=== PATIENT | male | born 1945 | race Caucasian/White ===

== ENCOUNTER → 2016-11-02 | Outpatient (CLI) | payer OTHER, BC ==
[~2016-11-02] VITALS: Ht 175.3 cm; Wt 86.6 kg
[~2016-11-02] MED LIST: ACIDOPHILUS1 EAC3 PO; ALBUTEROL2.5 MG/0.5 INH; AMBIEN 10 MG TA10 MG PO; AMITRIPTYLINE H25 M2 PO; APAP500 PO; ASPIRIN325 PO; ASTHALIN; AVODART0.5 MG PO; CHERATUSSIN AC118 ML PO; CHERATUSSIN DA480 ML; DITROPAN XL15 MG PO; FINASTERIDE5 MG PO; FLEXERIL PO; HYDROCODON-ACE1 EAC7 PO; HYDROCODON-ACE1 EACH PO; LEVAQUIN 500 M500 M2 PO; LOPRESSOR25 PO; METAMUCIL PAC1 UDPKT PO; OMEPRAZOLE10 MG PO; PAXIL10 MG; PROAIR HFA8.5 GM INH; SEREVENT DISKU50 MCG IH; SPIRIVA18 MCG INH; SYMBICORT80 MCG/4.5 INH; TAMSULOSIN HCL0.4 MG PO; TRAZODONE HCL50 MG PO; TRIAMCINOLONE A80 G2 TOP; XARELTO20 MG PO; [UNRECOGNIZED DRUG - OTHER]
--- NOTE | ~2016-11-02 | CATHLAB ---
[facility] [address] [place] [address] INVASIVE PROCEDURE REPORT Name: NARAYAN PAGE Room #: REG CL [facility]#: [id number] Admission: 11/02/16 Attend Phys: Derek Melissa Discharge: Date of : 45 Date of Service: 12/07/16 0830 Report #: [id number] THIS REPORT FOR: //name// CC: Derek Villatoro Arpit DATE OF SERVICE: 11/02/2016 This is a male patient with cardiomyopathy and implantable defibrillator, presents for battery change due to exceeding the AURA time. Ventricular defibrillation lead has higher thresholds, but it seems to be functioning normally. PROCEDURE: 1. ICD generator change with a [employer]. Godfrey's defibrillator device. 2. Supervision of conscious sedation. BRIEF DESCRIPTION OF PROCEDURE: After informed consent was obtained, the patient was brought to the cardiac catheterization laboratory in stable condition. The chest was prepped and draped in the usual sterile manner. Utilizing 1% lidocaine, the skin was then instilled and advanced into the deeper tissues. Utilizing a standard blade, incision was carried forth. With both sharp and blunt dissections ____ hemostasis, the capsule was then identified. The device was then delivered. Leads were verified and ventricular thresholds on the right ventricular leads were slightly elevated but satisfactory. In view of this, the new device was a [employer]. Godfrey device, serial number is noted in the chart, was then connected to the pocket device. Chest was irrigated with antibiotic solution and the device was placed in the chest. Two level closure was then ensued. Skin was closed with running subcuticular. Op-Site was placed. Subsequent to the procedure, the thresholds on the right ventricular leads were elevated and increased significantly. It was felt that intermittent lead failure was the issue. The patient was able to be paced on the left ventricular lead and with the ejection fraction above 40%, sudden cardiac arrhythmias were at low risk. It was felt that instead of adding a second lead due to the fact that there were already [address], extraction would be the most appropriate modality to deal with the issue. The patient tolerated the procedure well and was taken to the room in stable condition. EBL: 10 mL. RECOMMENDATIONS: The patient will be referred for lead extraction at the next available appointment at . <ELECTRONICALLY SIGNED> By: Derek Mcgee MD 12/10/16 1713 0830 1100 Derek Mcgee MD /nt
--- NOTE | ~2016-11-02 | EKG ---
[address] [employer] [address] ELECTROCARDIOGRAM REPORT Name: NARAYAN PAGE Room #: REG CLI [id number] Admission: 11/02/16 Attend Phys: Derek Mcgee Discharge: Date of : 45 Report #: [id number] THIS REPORT FOR: //name// [facility] Test Date: 2016-11-02 Test Time: 08:50:24 Pat Name: NARAYAN PAGE Department: Room: Gender: Certified Phlebotomist: trae : 1945 Requested By: Derek Mcgee Order Number: [id number] MD: Kaushik Meza Measurements Intervals [place] Rate: 61 P: 127 ME: 107 QRS: 0 QRSD: 127 T: QT: 389 QTc: 392 Interpretive Statements Ventricular-paced rhythm No further analysis attempted due to paced rhythm Baseline wander in lead(s) V3,V4,V5 No previous ECG available for comparison Electronically Signed On 11-02-2016 9:24:57 DISCHARGE RN by Kaushik Meza [email or web address] <ELECTRONICALLY SIGNED> By: Kaushik Meza MD, [facility] 11/02/1624 Kaushik Meza MD, [facility] /EPI
--- NOTE | ~2016-11-02 | H ---
[facility] [place] [address] HISTORY AND PHYSICAL Name: NARAYAN PAGE Room #: REG CL [facility].#: [id number] Admission: 11/02/16 Attend Phys: Derek Mcgee Discharge: Date of : 45 Report #: [id number] THIS REPORT FOR: //name// CC: Derek Villatoro Arpit HISTORY OF PRESENT ILLNESS: This is a pleasant gentleman who has permanent pacemaker which has surpassed electively placement interval. The patient had been scheduled previously for generator change, but developed infection and was subsequently postponed. He now returns for pacer change, without any significant difference in clinical presentation from his prior H and P. PHYSICAL EXAMINATION: GENERAL: Showed well-developed white male, resting comfortably in no distress. VITAL SIGNS: Noted and reviewed in the chart. HEENT: Normocephalic, atraumatic. Pupils are equal, round, reactive to light and accommodation. Extraocular muscles are intact. Sclerae and conjunctivae are anicteric. NECK: JVD is normal. Carotid upstrokes are bilaterally symmetrical. No bruits are heard. No thyromegaly. No lymphadenopathy. LUNGS: Clear to auscultation. No wheezes, rhonchi or crackles. No CVA tenderness. CARDIAC: Demonstrates a regular rhythm. Normal first and second heart sounds. No ventricular or atrial gallops, no rubs noted. No murmurs. No lifts or heaves, PMI normal. ABDOMEN: Soft, nontender, nondistended. Normal bowel sounds. EXTREMITIES: Without cyanosis, clubbing or edema. Distal pulses are intact. DTR symmetrical. NEUROLOGIC: Cranial nerves 2-12 are grossly normal and symmetrical. PSYCHIATRIC: Alert, oriented with normal affect. SKIN: Warm and dry. IMPRESSION: Permanent pacing with device beyond elective replacement interval. The generator must be changed. The risks, complications and alternatives of the generator change as well as conscious sedation have been discussed with the patient. He voices understanding and wishes to proceed. <ELECTRONICALLY SIGNED> By: Derek Mcgee MD 11/02/16 1359 1003 1149 Derek Mcgee MD /nt
[2016-11-02 08:42] LABS: HEMOGLOBIN 15.3 gm/dL (14.0-18.0); MCH 30.3 pg (26.0-34.0); MCHC 33.2 g/dL (28.0-37.0); MCV 91.2 fL (80.0-100.0); RBC 5.05 mil/uL (4.50-6.00); RDW 12.7 % (10.5-14.5); WBC 7.1 thou/uL (4.0-11.0)
[2016-11-02 08:53] LABS: CREATININE 1.2 mg/dL (0.6-1.3); INR 1.1; PROTIME 10.9 Seconds (9.3-11.4)
[2016-11-02 09:19] VITALS: BP 136/80
== END | disposition home or self-care (01) ==
LOC: CATH 10-17 08:58
PROVIDERS: Internal Medicine
DX: I42.9 Cardiomyopathy, unspecified (principal)

== ENCOUNTER → 2017-05-24 | Outpatient (CLI) | payer OTHER, BC | LOC: RAD 13:07 | DX: R91.1 Solitary pulmonary nodule (principal) ==

== ENCOUNTER → 2018-06-10 | Outpatient (CLI) | payer OTHER, BC | LOC: RAD 08:47 | DX: R06.02 Shortness of breath (principal); J43.9 Emphysema, unspecified ==

== ENCOUNTER → 2019-01-07 | Outpatient (CLI) | payer OTHER, BC | LOC: RAD 09:24 | DX: M47.816 Spondylosis without myelopathy or radiculopathy, lumbar region (principal); I70.0 Atherosclerosis of aorta ==

== ENCOUNTER → 2019-06-02 | Outpatient (CLI) | payer OTHER, BC | LOC: RAD 08:50 | DX: J44.9 Chronic obstructive pulmonary disease, unspecified (principal); J98.4 Other disorders of lung; Z95.0 Presence of cardiac pacemaker ==

== ENCOUNTER → 2020-05-16 | Outpatient (CLI) | payer OTHER, BC | LOC: NUC 07:48 | PROVIDERS: ATTEND Physical Medicine & Rehabilitation | DX: T84.030A Mechanical loosening of internal right hip prosthetic joint, initial encounter (principal) ==

== ENCOUNTER → 2020-05-31 | Outpatient (CLI) | payer OTHER, BC | LOC: RAD 08:55 | PROVIDERS: ATTEND Pediatrics | DX: J44.9 Chronic obstructive pulmonary disease, unspecified (principal); R06.00 Dyspnea, unspecified ==

== ENCOUNTER → 2020-06-03 | Outpatient (CLI) | payer OTHER, BC | LOC: CAT 08:03 | PROVIDERS: ATTEND Physical Medicine & Rehabilitation | DX: M47.816 Spondylosis without myelopathy or radiculopathy, lumbar region (principal); M48.062 Spinal stenosis, lumbar region with neurogenic claudication ==

== ENCOUNTER 2020-11-13 17:38 | Inpatient (IN) | payer OTHER, BC ==
[~2020-11-13] VITALS: Ht 175.3 cm; Wt 74.8 kg
--- NOTE | ~2020-11-13 | EMS ---
[facility] [address] [place] [address] EMS Patient Care Report Name: NARAYAN PAGE Room #: 433-I ADM IN M.R.#: [id number] Admission: 11/13/20 Attend Phys: Kitty Donnelly Discharge: Date of : 45 Report #: [id number] THIS REPORT FOR: //name// Report Transmitted: 11/14/2020 16:18 EMS Care Summary [facility] Alejandra DC Incident [id number] @ 11/13/2020 16:35 Incident Location [address] [place] [address] Patient Narayan Page Male, 75 Years 1945 Patient Address [address] [id number] Patient History Pacemaker/AICD,Chronic Obstructive Pulmonary Disease (COPD),Pneumonia, unspecified organism,Presence of artificial hip joint,Atrial Fibrillation, Patient Allergies , Patient Medications [place], Amrix, Acetaminophen, Norvasc, Carvedilol, Claritin, Lexapro, Flecainide, Bidex, Cozaar, Singulair, Prilosec, Prednisone, Requip, salmeterol, Xarelto, Chief Complaint Abdominal pain/discomfort Disposition Transported No Lights/[place] Reason Breathing Problem Transported To [facility] Narrative [id number] dispatched to an apartment complex for a breathing problem. on scene, [facility] [address] [place] [address] EMS Patient Care Report Name: NARAYAN PAGE Room #: 433-I ADM IN ..#: [id number] Admission: 11/13/20 Attend Phys: Kitty Donnelly Discharge: Date of : 45 Report #: [id number] ems was met by ifd with a 75 yom complaining of abdominal px. pt states onset of px began approx three days ago and has been increasing in severity since. pt states px has been constant and described it as a "dull, sharp" type of px. pt states px slightly radiates to the top of his right hip. pt states px is provoked with deep breaths and some movement. pt reports relief of px while at rest. pt states he has been taking px meds prn recently due to right hip px. pt states in the last two days he has not had any bowel movements, denies any diarrhea, but claims he has had normal bowel movements prior to. pt states he also has been experiencing some shortness of air with exertion, reports a history of copd. pt states he uses oxygen as needed at home, denies any use of cpap or worsening soa while laying flat. pt reports receiving the second dose of his pfizer covid vaccine on . pt denies chest px, nausea/vomiting, dizziness, headache, fever, chills, cough. upon arrival, pt was found ambulatory with his cane on scene. pt was awake alert and oriented, airway was patent and clear, breathing was normal and regular - non labored, circulation was normal and regular, skin pink warm dry, physical assessment as noted, no obvious trauma noted. bsi, pt ambulated to [facility] and secured, pt loaded into unit and locked in place, abcs, vitals obtained, blood sugar, 12 lead obtained, transport initiated, pt reassessed, vitals repeated, pt remained stable with slight improvement to px, at destination pt was unloaded from unit and wheeled into ed, pt scooted from [place] to ed bed, verbal report given to md and rn at receiving facility. [id number] returned to service without incident. Initial Vitals @17:22Pain: 01/23, @16:50Pain: 04/25, @16:56SpO2: 87, @16:56SpO2: 86, @17:01SpO2: 91, @17:06SpO2: 95, @17:11SpO2: 95, @17:19SpO2: 97, @17:21SpO2: 96, @17:26SpO2: 95, @17:29SpO2: 95, @16:56 @17:01 @16:46P: 64,R: 20,BP: 135/76, @16:57P: 69,R: 20,BP: 115/67, @17:07P: 64,R: 20,BP: 117/56, @17:19P: 63,R: 16,BP: 108/61, @17:29P: 63,R: 16,BP: 104/50, @16:46GCS: 15, @16:57GCS: 15, @17:07GCS: 15, @17:19GCS: 15, [address] [address] EMS Patient Care Report Name: NARAYAN PAGE Room #: 433-I ADM IN M.R.#: [id number] Admission: 11/13/20 Attend Phys: Kitty Donnelly Discharge: Date of : 45 Report #: [id number] @17:29GCS: 15, @16:57Glucose: 103, Assessments @16:41MENTAL:SKIN:HEENT:LUNG SOUNDS:ABDOMEN:PELVIS//GI:EXTREMITIES:PULSE:NEURO: Impression Acute abdomen Procedures @16:56Other - Medication - 2.000 Liters per Minute (l/min [fluid]) - Nasal CannulaResponse: Improved@16:563-Lead ECGResponse: UnchangedSucceeded@17:0112-Lead ECGResponse: UnchangedSucceeded Timeline 16:34,Call Received 16:34,Dispatch Notified 16:34,Psap Call 16:35,Dispatched 16:35,En Route 16:39,On Scene 16:41,At Patient 16:46,BP: 135/76 M,PULSE: 64,RR: 20 R,SPO2: Ox,ETCO2: ,BG: ,PAIN: ,GCS: , 16:46,BP: / M,PULSE: ,RR: R,SPO2: Ox,ETCO2: ,BG: ,PAIN: ,GCS: 15, 16:50,BP: / M,PULSE: ,RR: R,SPO2: Ox,ETCO2: ,BG: ,PAIN: 8,GCS: , 16:56,Other - Medication - 2.000 Liters per Minute (l/min [fluid]) - Nasal Cannula,Response: Improved 16:56,3-Lead ECG,Response: UnchangedSucceeded, 16:56,BP: / M,PULSE: ,RR: R,SPO2: 87 Ox,ETCO2: ,BG: ,PAIN: ,GCS: , 16:56,BP: / M,PULSE: ,RR: R,SPO2: 86 Ox,ETCO2: ,BG: ,PAIN: ,GCS: , 16:56,BP: / M,PULSE: ,RR: R,SPO2: Ox,ETCO2: ,BG: ,PAIN: ,GCS: , 16:57,BP: 115/67 M,PULSE: 69,RR: 20 R,SPO2: Ox,ETCO2: ,BG: ,PAIN: ,GCS: , 16:57,BP: / M,PULSE: ,RR: R,SPO2: Ox,ETCO2: ,BG: ,PAIN: ,GCS: 15, 16:57,BP: / M,PULSE: ,RR: R,SPO2: Ox,ETCO2: ,B,PAIN: ,GCS: , 17:01,12-Lead ECG,Response: UnchangedSucceeded, 17:01,BP: / M,PULSE: ,RR: R,SPO2: 91 Ox,ETCO2: ,BG: ,PAIN: ,GCS: , 17:01,BP: / M,PULSE: ,RR: R,SPO2: Ox,ETCO2: ,BG: ,PAIN: ,GCS: , 17:02,Depart Scene 17:06,BP: / M,PULSE: ,RR: R,SPO2: 95 Ox,ETCO2: ,BG: ,PAIN: ,GCS: , 17:07,BP: 117/56 M,PULSE: 64,RR: 20 R,SPO2: Ox,ETCO2: ,BG: ,PAIN: ,GCS: , 17:07,BP: / M,PULSE: ,RR: R,SPO2: Ox,ETCO2: ,BG: ,PAIN: ,GCS: 15, 17:11,BP: / M,PULSE: ,RR: R,SPO2: 95 Ox,ETCO2: ,BG: ,PAIN: ,GCS: , 17:19,BP: / M,PULSE: ,RR: R,SPO2: 97 Ox,ETCO2: ,BG: ,PAIN: ,GCS: , 17:19,BP: 108/61 M,PULSE: 63,RR: 16 R,SPO2: Ox,ETCO2: ,BG: ,PAIN: ,GCS: , 17:19,BP: / M,PULSE: ,RR: R,SPO2: Ox,ETCO2: ,BG: ,PAIN: ,GCS: 15, [facility] [address] [place] [address] EMS Patient Care Report Name: NARAYAN PAGE Room #: 433-I ADM IN M.R.#: [id number] Admission: 11/13/20 Attend Phys: Kitty Donnelly Discharge: Date of : 45 Report #: [id number] 17:21,BP: / M,PULSE: ,RR: R,SPO2: 96 Ox,ETCO2: ,BG: ,PAIN: ,GCS: , 17:22,BP: / M,PULSE: ,RR: R,SPO2: Ox,ETCO2: ,BG: ,PAIN: 5,GCS: , 17:26,BP: / M,PULSE: ,RR: R,SPO2: 95 Ox,ETCO2: ,BG: ,PAIN: ,GCS: , 17:29,BP: / M,PULSE: ,RR: R,SPO2: 95 Ox,ETCO2: ,BG: ,PAIN: ,GCS: , 17:29,BP: 104/50 M,PULSE: 63,RR: 16 R,SPO2: Ox,ETCO2: ,BG: ,PAIN: ,GCS: , 17:29,BP: / M,PULSE: ,RR: R,SPO2: Ox,ETCO2: ,BG: ,PAIN: ,GCS: 15, 17:32,At Destination 17:51,Call Closed Disclaimer v1.1 Copyright 2020 [employer] This EMS Care Summary contains data elements from the applicable legal record (which may be displayed differently). It is designed to provide pertinent information for the following purposes: continuity of care, clinical quality, and state data reporting. The complete legal record is available to ED staff and administrators of the receiving hospital in [employer]'s Patient Tracker. All data is provided "as is."
[~2020-11-13 17:38] MED LIST changes: -ASTHALIN; +ASTHALIN NASAL
[2020-11-13 17:39] VITALS: BP 103/53
[2020-11-13 18:17] LABS: HEMATOCRIT 37.8 % (42.0-52.0); HEMOGLOBIN 12.5 gm/dL (14.0-18.0); MCH 31.2 pg (26.0-34.0); MCV 94.6 fL (80.0-100.0); PLATELET COUNT 157 thou/uL (150-400); RBC 3.99 mil/uL (4.50-6.00); RDW 12.2 % (10.5-14.5); WBC 14.7 thou/uL (4.0-11.0)
[2020-11-13 18:27] LABS: CALCIUM 8.9 mg/dL (8.5-10.1); CREATININE 2.5 mg/dL (0.7-1.3); POTASSIUM 4.7 mmol/L (3.5-5.1)
[2020-11-13 18:31] LABS: INR 1.4; PROTIME 15.3 Seconds (9.3-11.4)
[2020-11-13 18:32] LABS: ALBUMIN 3.8 g/dL (3.4-5.0); TOTAL BILIRUBIN 0.9 mg/dL (0.2-1.0); TOTAL PROTEIN 7.5 g/dL (6.4-8.2)
[2020-11-13 19:17] LABS: ABSOLUTE NEUTROPHILS 13.1 thou/uL (1.4-8.2)
[2020-11-13 19:57] LABS: URINE BILIRUBIN NEGATIVE (Negative); URINE BLOOD NEGATIVE (Negative); URINE CLARITY CLEAR; URINE COLOR YELLOW; URINE GLUCOSE-RANDOM* NEGATIVE (Negative); URINE KETONES NEGATIVE (Negative); URINE LEUKOCYTES-REFLEX NEGATIVE (Negative); URINE NITRITE-REFLEX NEGATIVE (Negative); URINE PROTEIN (DIPSTICK) TRACE (Negative); URINE SPECIFIC GRAVITY 1.025 (1.005-1.035); URINE UROBILINOGEN 0.2 E.U./dl (0.2-1.0)
[2020-11-14] VITALS (11 sets, daily range): BP systolic 91–110; BP diastolic 43–63
--- NOTE | 2020-11-14 02:19 | NUR ---
ADMIT FROM ED. PT LIVES AT HOME WITH . C/O RLQ ABD PAIN FOR 3 DAYS. NO BM. COUGH, SOA WITH AMBULATION. O2 PER NC. PT HAS HAD 2 DOSES OF COVID VACCINE. PT VERBALIZED UNDERSTANDING NPO STATUS FOR SURGERY IN AM. IVF INTACT. AMBULATES STEADY WITH A CANE. BED ALARM ON.
[2020-11-14] MEDS ORDERED: LEXAPRO 10 MG T10 M2 PO (03:21)
[2020-11-14] MEDS ORDERED: FLECAINIDE ACET50 M1 PO (03:22)
[2020-11-14] MEDS ORDERED: NORVASC10 MG PO (03:23)
[2020-11-14] MEDS ORDERED: COZAAR 50 MG TA50 M1 PO (03:24)
[2020-11-14] MEDS ORDERED: SINGULAIR 10 MG10 MG PO (03:24)
[2020-11-14] MEDS ORDERED: REQUIP 1 MG TABL1 M1 PO ×2 (03:25)
[2020-11-14] MEDS ORDERED: CARVEDILOL12.5 MG PO (03:26)
[2020-11-14] MEDS ORDERED: CLARITIN10 MG PO (03:27)
[2020-11-14] MEDS ORDERED: OTHER (03:28)
[2020-11-14 05:50] LABS: HEMATOCRIT 32.5 % (42.0-52.0); HEMOGLOBIN 10.6 gm/dL (14.0-18.0); MCH 31.4 pg (26.0-34.0); MCHC 32.7 g/dL (28.0-37.0); RBC 3.38 mil/uL (4.50-6.00); RDW 12.2 % (10.5-14.5); WBC 14.4 thou/uL (4.0-11.0)
[2020-11-14 06:11] LABS: CALCIUM 8.4 mg/dL (8.5-10.1); CREATININE 2.7 mg/dL (0.7-1.3); POTASSIUM 4.3 mmol/L (3.5-5.1)
--- NOTE | 2020-11-14 06:37 | NUR ---
PT TAKEN TO SURGERY HOLDING AREA. PTS RING WATCH IN HIS BACK PACK. PT DID CALL HIS PRIOR TO GOING TO HOLDING AREA.
--- NOTE | 2020-11-14 07:16 | EKG ---
[address] [address] [address] [facility] [address] ELECTROCARDIOGRAM REPORT Name: NARAYAN PAGE Room #: 433-I ADM IN M.R.#: [id number] Admission: 11/13/20 Attend Phys: Kitty Donnelly Discharge: Date of : 45 Report #: [id number] [facility] ED Test Date: 2020-11-13 Test Time: 18:27:26 Pat Name: NARAYAN PAGE Department: Room: [facility] Gender: M Manager Latin: DAYLIN : 1945 Requested By: Juan Dickinson Order Number: [id number] MD: Rober Mehta Measurements Intervals [place] Rate: 60 P: 16 [place]: 200 QRS: 0 QRSD: 118 T: QT: 401 QTc: 401 Interpretive Statements Atrial-ventricular dual-paced rhythm No further analysis attempted due to paced rhythm Baseline wander in lead(s) V5 Compared to ECG 11/02/2016 08:50:24 No significant changes Electronically Signed On 11-14-2020 7:16:34 MALTER OPERATOR by Rober Mehta [email or web address] <ELECTRONICALLY SIGNED> By: Rober Mehta MD, [facility] 11/14/20 0716 26 26 Rober Mehta MD, [facility] /EPI
--- NOTE | 2020-11-14 15:42 | NUR ---
PT OFF THE UNIT IN SURGERY AT THE START OF THE SHIFT. PT RETURNED TO THE ROOM MID MORNING. PT HAD A LAP APPENDECTOMY. ONE KAREN DRAIN TO BULB SUCTION. PT C/O PAIN SCHEDULED PAIN MEDICATION GIVEN WITH SOME RELEIF. PT TOLERATES MEDS AND MEALS. PT AT BEDSIDE. WILL CONTINUE TO MONITOR.
--- NOTE | 2020-11-14 15:51 | NUR ---
ASSESSMENT: CM REVIEWED CHART AND MET WITH PATIENT AT THE BEDSIDE. PT IS S/P LAP APPE. PT REPORTS THAT HE LIVES IN AN APT WITH HIS . PT HAS ABOUT 15 STEPS WITH HANDRAILS TO ENTER AND NO STEPS ONCE INSIDE. PT REPORTS HE NORMALLY IS FULLY INDEPENDENT WITH ADLS AND AMBULATION BUT DOES HAVE A CANE HE HAS A HOME IF NEEDED. PT REPORTS HE HAS A PAST HX OF HH YEARS AGO AFTER A SURGERY BUT UNSURE THE AGENCY. CM DISCUSSED ROLE. PT DOES NOT ANTICIPATE HAVING ANY NEEDS AT DISCHARGE. CM WILL CONTINUE TO FOLLOW TO ASSIST NEEDED.
--- NOTE | 2020-11-15 01:33 | NUR ---
ASSESSMENT: PT REMAIN ALERT AND ORIENT TIMES THREE. NORMALLY AMBULATES AD JOSE WITH CANE. CUARRENTLY SBA R/T TUBING AND KAREN DRAIN. KAREN DRAIN NOTED WITH BLOODY OUTPUT, SECRURED TO GOWN FOR STABALIZING. BP LOW, MS NOT GIVEN PER PERIMETERS. TRAMADOL GIVEN WITH PARTIAL RELIEF OF PAIN. LAP APPI SITES, DRY AND INTACT. PT REFUSED SCD'S. PT WAS INITALLY FRUSTRATED WITH NOT GETTING HIS NEEDS MET. REASSURANCE AND SOME MUCH NEEDED TEACHING WAS GIVEN TO PT. PT CURRENTLY SATISFIED AND THANKFUL FOR HIS CARE. SLOW PROGRESS TOWARDS DC GOALS,. WILL COTNINUE TO MONITOR.
--- NOTE | 2020-11-15 03:21 | NUR ---
ISREAL BRADFORD AT THE BEDSIDE OF PT. RESUMING HOME MEDS. PT VOICED NO CONCERNS.
[2020-11-15 04:00] VITALS: BP 93/54
[2020-11-15 05:43] LABS: HEMATOCRIT 31.5 % (42.0-52.0); HEMOGLOBIN 10.4 gm/dL (14.0-18.0); MCH 31.9 pg (26.0-34.0); MCV 96.8 fL (80.0-100.0); RBC 3.26 mil/uL (4.50-6.00); RDW 12.8 % (10.5-14.5); WBC 13.4 thou/uL (4.0-11.0)
[2020-11-15 06:16] LABS: CREATININE 2.4 mg/dL (0.7-1.3); POTASSIUM 4.8 mmol/L (3.5-5.1)
[2020-11-15 07:20] VITALS: BP 123/77
[2020-11-15 08:00] VITALS: BP 117/72
--- NOTE | 2020-11-15 11:18 | NUR ---
Assumed care of pt at 0700. Pt a&ox4. Pain controlled with prn pain meds. Dressings c/d/i. J.P. drain in place. IVF and IV antibiotics infusing. Pt ambulated in the hallway. Call light within reach. Will continue to monitor.
--- NOTE | 2020-11-15 14:52 | NUR ---
ON-GOING ASSESSMENT: CM REVIEWED CHART. PT IS ON FULL LIQUIDS AND CONTINUING ON IV ANTIBIOTICS. CM WILL CONTINUE TO FOLLOW TO ASSIST NEEDED.
[2020-11-15 19:30] VITALS: BP 115/53
--- NOTE | 2020-11-15 21:56 | NUR ---
ASSESSED AT START OF SHIFT. PT A&OX4 EVENING MEDS GIVEN AND PT SHANA IT WELL. URINAL AT BEDSIDE. PT SHANA FULL LIQUID DIET. ON 2L OF O2. UP TO THE BATHROOM WITH SBA. KAREN DRAIN IN PLACE. FALL PREC MAINTAINED AND CALL LIGHT AT REACH WILL CONT TO MONITOR.
[2020-11-16 04:20] VITALS: BP 133/68
[2020-11-16 07:36] VITALS: BP 135/76
--- NOTE | 2020-11-16 09:53 | NUR ---
Assumed care of pt at 0700. Pt a&ox4. Pain controlled with scheduled and prn pain meds. J.P. drain in place. Incisions well-approximated. On 2L O2. IVF and IV antibiotcs infusing. SBA assist with cane. On continuous pulse ox. Call light within reach. Will continue to monitor.
[2020-11-16 10:12] LABS: ABSOLUTE NEUTROPHILS 6.7 thou/uL (1.4-8.2); BASOPHILS 0.1 % (0.0-2.0); EOSINOPHILS 0.5 % (0.0-3.0); HEMATOCRIT 31.2 % (42.0-52.0); HEMOGLOBIN 10.3 gm/dL (14.0-18.0); LYMPHOCYTES 9.4 % (24.0-44.0); MCH 31.9 pg (26.0-34.0); MCHC 33.2 g/dL (28.0-37.0); MCV 96.3 fL (80.0-100.0); MONOCYTES 7.6 % (1.0-8.0); PLATELET COUNT 153 thou/uL (150-400); POLYS 82.4 % (36.0-66.0); RBC 3.24 mil/uL (4.50-6.00); RDW 12.6 % (10.5-14.5); WBC 8.1 thou/uL (4.0-11.0)
[2020-11-16 10:19] LABS: CALCIUM 8.8 mg/dL (8.5-10.1); CREATININE 2.3 mg/dL (0.7-1.3); POTASSIUM 4.3 mmol/L (3.5-5.1)
--- NOTE | 2020-11-16 13:00 | NUR ---
ON-GOING ASSESSMENT: CM REVIEWED CHART. PT REMAINS ON 2L OXYGEN. PT REPORTS HAVING OXYGEN ARRANGED AT HOME WITH EQUIPMENT ALREADY BUT REPORTS HE DOES NOT WEAR IT. PT HAS OXYGEN SUPPLIED AT HOME THROUGH [facility]. CM VERIFIED WITH ALYSSA HINOJOSA WHO REPORTS THEY SUPPLY PT WITH OXYGEN AND HE CAN BRING A PORTABLE TANK UP FOR PATIENT PRIOR TO DISCHARGE IF HE IS NEEDING AT THAT TIME (HE WILL LEAVE IT IN PATIENTS ROOM). CM NOTIFIED PATIENT AND BEDSIDE RN. PT HAS YET TO HAVE A BM AND ADVANCING DIET. CM WILL CONTINUE TO FOLLOW TO ASSIST NEEDED.
[2020-11-16 15:19] VITALS: BP 110/69
[2020-11-16 20:39] VITALS: BP 117/58
--- NOTE | 2020-11-16 23:35 | NUR ---
ASSESSED AT START OF SHIFT. PT A&OX4 EVENING MEDS GIVEN AND PT SHANA IT WELL. DENIES PAIN, N/V. ON 2L OF O2 AND CONTINUOS PULSE OX. IV INTACT AND FLUIDS INFUSING. KAREN DRAIN IN PLACE. 40CC OUT ON ASSESSMENT. WILL CONT TO MONITOR.
[2020-11-17 03:40] VITALS: BP 133/79
[2020-11-17 05:25] LABS: HEMATOCRIT 31.2 % (42.0-52.0); HEMOGLOBIN 10.5 gm/dL (14.0-18.0); MCH 32.3 pg (26.0-34.0); MCHC 33.5 g/dL (28.0-37.0); MCV 96.4 fL (80.0-100.0); RBC 3.24 mil/uL (4.50-6.00); RDW 12.4 % (10.5-14.5); WBC 6.4 thou/uL (4.0-11.0)
[2020-11-17 05:26] LABS: ALBUMIN 2.9 g/dL (3.4-5.0); CALCIUM 8.5 mg/dL (8.5-10.1); CREATININE 2.2 mg/dL (0.7-1.3); MAGNESIUM 1.6 mg/dL (1.8-2.4); POTASSIUM 4.5 mmol/L (3.5-5.1); TOTAL BILIRUBIN 0.5 mg/dL (0.2-1.0); TOTAL PROTEIN 6.3 g/dL (6.4-8.2)
[2020-11-17 07:17] VITALS: BP 136/77
--- NOTE | 2020-11-17 11:14 | NUR ---
ON-GOING ASSESSMENT: CM REVIEWED CHART AND SPOKE WITH ATTENDING WHO REPORTS PATIENT CAN DISCHARGE HOME TODAY WITH . PT HAS KAREN DRAIN. CM MET WITH PATIENT AND HE REPORTS HE HAS NO PREFERENCE OF HH COMPANY. CM SENT REFERRAL TO [facility] AND NOTIFIED LIAYAEL HINOJOSA OF DISCHARGE TODAY. PORTABLE OXYGEN TANK WAS DELIVERED TO PATIENTS ROOM FOR DISCHARGE AND HE ALREADY HAS OXYGEN ARRANGED AT HOME THROUGH [facility] AND ALYSSA STATING THEY DO NOT NEED ANY NEW ORDERS. PT REPORTS HIS WILL PROVIDE TRANSPORTATION. 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
[2020-11-17] MEDS ORDERED: MIRALAX17 GM PO (12:18)
[2020-11-17] MEDS ORDERED: ACETAMINOPHEN325 M1 PO (12:18)
[2020-11-17] MEDS ORDERED: ADULT TUSS100 MG/5 M PO (12:18)
[2020-11-17] MEDS ORDERED: METRONIDAZOLE500 M4 PO (12:18)
[2020-11-17] MEDS ORDERED: HYDROCODON-ACE1 EAC7 PO (12:18)
[2020-11-17] MEDS ORDERED: LEVOFLOXACIN500 MG PO (12:18)
[2020-11-17 13:06] VITALS: BP 136/77
[2020-11-17 13:36] VITALS: BP 136/77
--- NOTE | 2020-11-17 16:32 | NUR ---
PT A&OX4, VSS, DENIES PAIN. 3 LAP SITES SECURED WITH DERMABOND. KAREN DRAIN LEFT ABDOMEN, 120 ML TAKEN OFF, SEROSANGUINEOUS. PATIENT SENT HOME WITH DRAIN UNTIL HIS FOLLOW UP APPOINTMENT. PATIENT AWARE ON HOW TO USE DRAIN. PATIENT HOME WITH OXYGEN AND HOMEHEALTH. ALL BELONGINGS WITH PATIENT. PATIENT SATS 88-91 ON ROOM AIR. NO SIGNS OF DISTRESS AT DISCHARGE.
--- NOTE | 2020-11-17 18:38 | PATH ---
[facility] [address] [place] [address] PATHOLOGY RPT PROCEDURE Name: OSMAN TIWARI Room #: 433-I DIS IN M.R.#: [id number] Admission: 11/13/20 Date of : 45 Discharge: 11/17/20 Report #: [id number] Path Case #: [id number] [facility] Accession Number: [id number] . 01 Material submitted: . appendix - APPENDIX . 02 Diagnosis: Vermiform appendix, excision: - Marked transmural acute inflammation with marked acute serositis, suggestive of perforation. - Negative for malignancy. (GAGE:vanessa; 11/16/2020) MBR 11/17/2020 1117 Local . 02 Electronically signed: . Charlene Kang MD, Pathologist NPI- [id number] . 01 Gross description: . The specimen is received in formalin, labeled "Osman Tiwari, appendix". Received is a vermiform appendix measuring 4.9 cm in length by up to 0.7 cm in diameter with a moderate amount of attached mesoappendix. The serosal surface is pink-gaytan and shaggy in appearance with possible overlying exudate. The surgical margin is closed with a line of mallory. The mallory are removed and the new margin is inked black. Sectioning reveals a pinpoint to patent lumen. The specimen is submitted representatively in cassettes A1 and A2, with the proximal margin and bisected tip submitted in cassette A1. (CAA; 11/15/2020) QAC/QAC 11/15/2020 1541 Local . 02 Pathologist provided ICD-10: K35.80, K65.8 . 02 CPT . 154356 Specimen Comment: A courtesy copy of this report has been sent to [phone] Specimen Comment: Report sent to / Performed at: [address], [place] [id number] MD Juan Jose Hayes MD Phone: [phone] Performed at: [address] [id number] MD Abiola Manzano MD Phone: [phone]
== END 2020-11-17 14:44 | disposition home health service (06) | DRG 853 ==
LOC: ER 17:38 → 4S 20:50 → EROBS 20:50 → 4S 11-14 00:50
PROVIDERS: Emergency Medicine; Nurse Practitioner Family; Surgery; ADMIT Internal Medicine; ATTEND Internal Medicine
PROC: 0DTJ4ZZ Resection of Appendix, Percutaneous Endoscopic Approach (ICD-10-PCS; principal; 2020-11-14)
DX: A41.9 Sepsis, unspecified organism (principal); K35.32 Acute appendicitis with perforation, localized peritonitis, and gangrene, without abscess; N17.0 Acute kidney failure with tubular necrosis; I42.9 Cardiomyopathy, unspecified; K56.7 Ileus, unspecified; J96.11 Chronic respiratory failure with hypoxia; K21.9 Gastro-esophageal reflux disease without esophagitis; J44.9 Chronic obstructive pulmonary disease, unspecified; G47.00 Insomnia, unspecified; N40.0 Benign prostatic hyperplasia without lower urinary tract symptoms; G89.29 Other chronic pain; M54.5 Low back pain; Z96.641 Presence of right artificial hip joint; E86.0 Dehydration; F32.9 Major depressive disorder, single episode, unspecified; Z20.822 Contact with and (suspected) exposure to COVID-19; G25.81 Restless legs syndrome; I48.0 Paroxysmal atrial fibrillation; F41.9 Anxiety disorder, unspecified; R53.81 Other malaise; Z79.899 Other long term (current) drug therapy; Z95.0 Presence of cardiac pacemaker; Z88.8 Allergy status to other drugs, medicaments and biological substances; Z87.891 Personal history of nicotine dependence
CPT/HCPCS: 10102; 50010; 50101; 50411; 50555; 50558; 50739; 50740; 51489; 52265; 52266; 53307; 53310; 53312; 53314; 54022; 54118; 56462; 56525; 56526; 58574; 62110; 62900; 70005

== ENCOUNTER → 2020-11-30 | Outpatient (CLI) | payer OTHER, BC ==
[~2020-11-30] MED LIST changes: +ACETAMINOPHEN325 M1 PO; +ADULT TUSS100 MG/5 M PO; +CARVEDILOL12.5 MG PO; +CLARITIN10 MG PO; +COZAAR 25 MG TA25 M1 PO; +COZAAR 50 MG TA50 M1 PO; +FLECAINIDE ACET50 M1 PO; +LEVOFLOXACIN500 MG PO; +LEXAPRO 10 MG T10 M2 PO; +METRONIDAZOLE500 M4 PO; +MIRALAX17 GM PO; +NORVASC10 MG PO; +OTHER; +REQUIP 1 MG TABL1 M1 PO; +SINGULAIR 10 MG10 MG PO
[2020-11-30 14:04] LABS: ABSOLUTE NEUTROPHILS 9.2 thou/uL (1.4-8.2); BASOPHILS 0.3 % (0.0-2.0); EOSINOPHILS 0.5 % (0.0-3.0); HEMATOCRIT 39.2 % (42.0-52.0); HEMOGLOBIN 12.8 gm/dL (14.0-18.0); LYMPHOCYTES 6.9 % (24.0-44.0); MCH 31.3 pg (26.0-34.0); MCHC 32.7 g/dL (28.0-37.0); MCV 95.8 fL (80.0-100.0); MONOCYTES 8.3 % (1.0-8.0); PLATELET COUNT 364 thou/uL (150-400); RDW 12.8 % (10.5-14.5); WBC 10.9 thou/uL (4.0-11.0)
[2020-11-30 14:20] LABS: ALBUMIN 3.8 g/dL (3.4-5.0); CALCIUM 9.5 mg/dL (8.5-10.1); CREATININE 2.2 mg/dL (0.7-1.3); POTASSIUM 4.6 mmol/L (3.5-5.1); TOTAL BILIRUBIN 0.5 mg/dL (0.2-1.0); TOTAL PROTEIN 7.7 g/dL (6.4-8.2)
== END ==
LOC: CAT 12:35
PROVIDERS: ATTEND Surgery
DX: K35.33 Acute appendicitis with perforation, localized peritonitis, and gangrene, with abscess (principal)

== ENCOUNTER 2020-12-01 05:10 | Inpatient (IN) | payer OTHER, BC ==
[~2020-12-01] VITALS: Ht 175.3 cm; Wt 105.6 kg
[~2020-12-01 05:10] MED LIST changes: -COZAAR 25 MG TA25 M1 PO
[2020-12-01 05:11] VITALS: BP 128/50
[2020-12-01 05:46] LABS: ABSOLUTE NEUTROPHILS 15.6 thou/uL (1.4-8.2); HEMATOCRIT 37.8 % (42.0-52.0); HEMOGLOBIN 12.2 gm/dL (14.0-18.0); LYMPHOCYTES 3.5 % (24.0-44.0); MCH 30.9 pg (26.0-34.0); MCHC 32.4 g/dL (28.0-37.0); MCV 95.5 fL (80.0-100.0); MONOCYTES 4.6 % (1.0-8.0); PLATELET COUNT 346 thou/uL (150-400); POLYS 91.9 % (36.0-66.0); RBC 3.96 mil/uL (4.50-6.00); RDW 12.7 % (10.5-14.5)
[2020-12-01 05:54] LABS: ANION GAP 13 mmol/L (7-16); BUN 69 mg/dL (7-18); CALCIUM 9.6 mg/dL (8.5-10.1); CHLORIDE 98 mmol/L (98-107); CO2 27 mmol/L (21-32); GLUCOSE 183 mg/dL (74-106); POTASSIUM 4.8 mmol/L (3.5-5.1); SODIUM 138 mmol/L (136-145)
[2020-12-01 05:55] LABS: CREATININE 3.2 mg/dL (0.7-1.3)
[2020-12-01 06:05] LABS: ALBUMIN 3.6 g/dL (3.4-5.0); SGOT 14 U/L (15-37); SGPT 21 U/L (30-65); TOTAL BILIRUBIN 0.5 mg/dL (0.2-1.0); TOTAL PROTEIN 7.3 g/dL (6.4-8.2); TROPONIN-I <0.06 ng/mL (<0.06)
--- NOTE | 2020-12-01 07:18 | EKG ---
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 Hand: MAX : 1945 Requested By: Tony Muse Order Number: [id number] MD: Rober Mehta Measurements Intervals [place] Rate: 61 P: 10 MT: 196 QRS: 180 QRSD: 118 T: 143 QT: 436 QTc: 440 Interpretive Statements Atrial-sensed ventricular-paced rhythm No further analysis attempted due to paced rhythm Baseline wander in lead(s) II,III,aVL,aVF,V3 Compared to ECG 11/13/2020 18:27:26 AV dual-paced complex(es) or rhythm no longer present Electronically Signed On 12-01-2020 7:18:39 CDT by Rober Mehta [email or web address] <ELECTRONICALLY SIGNED> By: Rober Mehta MD, FACC 12/01/20 0718 0535 0535 Rober Mehta MD, [facility] /EPI
[2020-12-01 08:19] LABS: HEMATOCRIT 33.5 % (42.0-52.0)
[2020-12-01 11:38] VITALS: BP 103/34
[2020-12-01 11:56] VITALS: BP 90/41
[2020-12-01 12:27] VITALS: BP 106/55
[2020-12-01 12:32] LABS: HEMATOCRIT 30.2 % (42.0-52.0); HEMOGLOBIN 9.9 gm/dL (14.0-18.0)
[2020-12-01] MEDS ORDERED: COZAAR 25 MG TA25 M1 PO (14:01)
[2020-12-01 15:57] VITALS: BP 100/56
[2020-12-01 19:51] VITALS: BP 106/56
--- NOTE | 2020-12-01 19:56 | NUR ---
PT. ARRIVED AT THE FLOOR AFTER 1430; PT. AXO4; NO C/O PAIN; NOTICED SOB WITH EXERTION; ON 5 L; FLUIDS AND PROTONIX RUNNING; EDUCATED ABOUT FALL PRECAUTIONS; ST. UNDERSTANDING; EDUCATED ABOUT VISITOR POLICY TO PT. AND SPOUSE; ST. UNDERSTANDING; EDUCATED ABOUT CALL LIGHT AND BED CONTROLS; ST. UNDERSTANDING; NEW IV STARTED; ANTIBIOTICS RUNNED IT; NG TUBE CONNECTED TO LOW INTERMITTENT SUCTION; NOT RESIDUAL OBTAINED; MONITORING; MONITORING HH; COVID TEST SENT; PT. REQUESTED MEDICATION FOR RESTLESS LEGS; PHYSICIAN NOTIFIED; PER PHYSICIAN STRICT NPO; VPACED ON THE MONITOR; ADMISSION PERFORMED; ASSESSMENT CHARGED; FOLLOWING POC; PASSED ON REPORT;
[2020-12-01 20:05] LABS: HEMATOCRIT 27.6 % (42.0-52.0); HEMOGLOBIN 9.1 gm/dL (14.0-18.0)
[2020-12-02] VITALS (81 sets, daily range): BP systolic 73–145; BP diastolic 12–79
[2020-12-02 05:26] LABS: ABSOLUTE NEUTROPHILS 12.6 thou/uL (1.4-8.2); BASOPHILS 0.1 % (0.0-2.0); HEMATOCRIT 26.6 % (42.0-52.0); HEMOGLOBIN 8.9 gm/dL (14.0-18.0); LYMPHOCYTES 5.7 % (24.0-44.0); MCH 32.3 pg (26.0-34.0); MCHC 33.5 g/dL (28.0-37.0); MCV 96.7 fL (80.0-100.0); MONOCYTES 11.4 % (1.0-8.0); POLYS 82.8 % (36.0-66.0); RBC 2.75 mil/uL (4.50-6.00); WBC 15.2 thou/uL (4.0-11.0)
[2020-12-02 05:39] LABS: PLATELET COUNT 253 thou/uL (150-400)
[2020-12-02 05:46] LABS: CALCIUM 8.8 mg/dL (8.5-10.1); POTASSIUM 5.1 mmol/L (3.5-5.1); TOTAL BILIRUBIN 0.4 mg/dL (0.2-1.0); TOTAL PROTEIN 5.9 g/dL (6.4-8.2)
--- NOTE | 2020-12-02 07:58 | NUR ---
patients care was assumed at shift change. Patient was assessed and meds were passed. patient likes to dangel at the bedside. patient requested his requip to be reinstated and a order was obtained. rounds were made. the bed is in a low and locked position
[2020-12-02 13:44] LABS: HCO3 20.7 mmol/L (22.0-26.0); PCO2 67.2 mmHg (35.0-45.0); PO2 245.1 mmHg (80.0-100.0); pH 7.106 (7.360-7.450); sO2 99.2 % (92.0-98.0)
[2020-12-02 13:50] LABS: HEMATOCRIT 25.4 % (42.0-52.0); HEMOGLOBIN 8.4 gm/dL (14.0-18.0); MCH 32.3 pg (26.0-34.0); MCV 97.9 fL (80.0-100.0); RBC 2.59 mil/uL (4.50-6.00); RDW 13.3 % (10.5-14.5); WBC 10.5 thou/uL (4.0-11.0)
[2020-12-02 13:59] LABS: CALCIUM 7.8 mg/dL (8.5-10.1); POTASSIUM 4.3 mmol/L (3.5-5.1)
[2020-12-02 14:16] LABS: BE(vivo) -6.7 mmol/L (-2 to +3); HCO3 21.4 mmol/L (22.0-26.0); PCO2 57.9 mmHg (35.0-45.0); PO2 369.6 mmHg (80.0-100.0); sO2 99.7 % (92.0-98.0)
[2020-12-02 14:17] LABS: pH 7.186 (7.360-7.450)
--- NOTE | 2020-12-02 15:56 | NUR ---
VAT CONSULTED FOR CVAD, OK WITH NEPHROLOGY, AT BEDSIDE. RIJ WAS WIDELY PATENT WITH USG. 6FR 25CM TL POWER JACC INSERTED TO 7CM EXTERNAL. STAT CXR ORDERED. GAUZE AT SITE FOR BLEEDING. PT TOLERATED WELL.
--- NOTE | 2020-12-02 16:08 | NUR ---
ASSUMED CARE OF PT AT SHIFT CHANGE. ASSESSMENTS CHARTED. MEDS GIVEN PER NOV. PT A&OX4, NO C/O PAIN OR DISTRESS NOTED. PT NPO SINCE MIDNIGHT, NG TUBE IN PLACE PUTTING OUT SMALL AMT OF COFFEE GROUND EMESIS. PT LEFT FOR EGD AT APPROX 1130. TRANSFERRED TO ICU AFTERWARDS.
[2020-12-02 16:52] LABS: BASOPHILS 0.2 % (0.0-2.0); EOSINOPHILS 0.1 % (0.0-3.0); HEMOGLOBIN 8.3 gm/dL (14.0-18.0); WBC 4.1 thou/uL (4.0-11.0)
[2020-12-02 16:54] LABS: ABSOLUTE NEUTROPHILS 3.3 thou/uL (1.4-8.2); HEMATOCRIT 25.4 % (42.0-52.0); LYMPHOCYTES 11.3 % (24.0-44.0); MCH 31.8 pg (26.0-34.0); MCHC 32.6 g/dL (28.0-37.0); MCV 97.5 fL (80.0-100.0); MONOCYTES 6.6 % (1.0-8.0); PLATELET COUNT 252 thou/uL (150-400); POLYS 81.8 % (36.0-66.0); RBC 2.61 mil/uL (4.50-6.00)
--- NOTE | 2020-12-02 17:06 | NUR ---
CXR CONFIRMED IJ PLACAEN=MENT, RELEASED FOR IMMEDIATE USE PER PROTOCOL TO MALISSA REN
[2020-12-02 17:08] LABS: CREATININE 3.6 mg/dL (0.7-1.3); POTASSIUM 4.7 mmol/L (3.5-5.1)
[2020-12-02 17:12] LABS: MAGNESIUM 1.9 mg/dL (1.8-2.4)
[2020-12-02 17:20] LABS: BE(vivo) -8.4 mmol/L (-2 to +3); HCO3 19.8 mmol/L (22.0-26.0); PO2 75.1 mmHg (80.0-100.0); sO2 91.1 % (92.0-98.0)
[2020-12-02 17:21] LABS: pH 7.175 (7.360-7.450)
[2020-12-02 18:29] LABS: URINE BILIRUBIN NEGATIVE (Negative); URINE BLOOD 3+ (Negative); URINE COLOR YELLOW; URINE GLUCOSE-RANDOM* NEGATIVE (Negative); URINE KETONES NEGATIVE (Negative); URINE LEUKOCYTES-REFLEX NEGATIVE (Negative); URINE NITRITE-REFLEX NEGATIVE (Negative); URINE PROTEIN (DIPSTICK) TRACE (Negative); URINE SPECIFIC GRAVITY 1.025 (1.005-1.035); URINE UROBILINOGEN 0.2 E.U./dl (0.2-1.0)
[2020-12-02 18:30] LABS: URINE CLARITY SL HAZY
[2020-12-02 18:41] LABS: CASTS None Seen /LPF (None Seen); SQUAMOUS None Seen /LPF (0-3); URINE RBC >20 Many /HPF (0-2); URINE WBC-REFLEX 0-5 Rare /HPF (0-5)
[2020-12-02 18:42] LABS: CRYSTALS None Seen /LPF (None Seen)
--- NOTE | 2020-12-02 18:48 | NUR ---
PT PRESENTED TO THE ICU WITH MULTIPLE STAFF ESCORT FROM THE OR, PT HAD ARRIVED WITH AN ET TUBE IN PLACE, WITH EPI/LEVO RUNNING. LEVOX4/VASOPRESSIN/PROPOFOL/FENTANYL WAS STARTED. VERSED 2MG PUSH WELL FENTANYL 100MCG PUSH WAS GIVEN WELL. PT WAS SEEN BY ///. PT PRESENTED TO ICU WITH ASPIRATION PNA POST EGD EXPLORING HEMOGLOBIN DROP WITH SBO. THROUGHOUT THE SHIFT PT WOULD DESAT PERIODICALLY AND WHEN IN LINE SUCTIONIED VISIBLE CHUNKS OF GASTRIC CONTENT WOULD BE ASPIRATED FROM THE PULMONARY SYSTEM. RN WILL NOTIFY AT THE END OF THE SHIFT. ABG IS PRESENTING WITH METABOLIC ACIDOSIS AT THIS TIME, BICARB 3 AMPS WERE GIVEN. 3L OF NS FLUID WAS GIVEN FOR BLOOD PRESSURE SUPPORT. D5 0.45NS WILL BE STARTED. PT ARRIVED TO THE UNIT WITH BELONGINGS OF CLOTHES, PARTIAL DENTURE, CROCS, AND GLASSES. WAS AT BEDSIDE THERE WAS A WATCH BUT DENIED THAT IT WAS THE PT'S. WHEEL SHOP SUPERVISOR HAD COME BY TO BLESS THE PT AND WAS PRESENT. WAS ALSO EXPLAINED OF THE CRITICAL PRESNTING SITUATION BY /. PT IS NOT PROGRESSING TOWARDS DISCHARGE AT THIS TIME R/T ACUITY OF THE SITUATION, NEED FOR MULTIPLE PRESSORS/SEDATION DRIPS. BLOOD CULTURES/UA/SPUTUM CULTURES WERE SENT OUT. PT IS STILL WORKING VERY HARD TO BREATHE. CURRENT MAP ON THE ART SHOWS 63, BP CUFF SHOWS 76. RN SIGNING OFF AT THIS TIME
[2020-12-02 20:11] LABS: HCO3 24.2 mmol/L (22.0-26.0); PCO2 78.7 mmHg (35.0-45.0); PO2 88.3 mmHg (80.0-100.0); sO2 92.8 % (92.0-98.0)
[2020-12-02 20:12] LABS: pH 7.106 (7.360-7.450)
[2020-12-02 22:45] LABS: BE(vivo) -6.8 mmol/L (-2 to +3); HCO3 23.2 mmol/L (22.0-26.0)
[2020-12-02 22:48] LABS: PCO2 74.6 mmHg (35.0-45.0); pH 7.111 (7.360-7.450)
--- NOTE | 2020-12-02 23:04 | NUR ---
PT DESATS, DIFFICULT TO SUCTION, NOT GETTING FULL VOLUMES ON VENT, CALL TO DR PÉREZ WITH CONCERNS THAT THERE IS OBSTRUCTION IN TUBE. BETO IN TO DO BEDSIDE BRONCHOSCOPY, STARTING 2051 THROUGH 2126. ORDERS RECIEVED BEDSIDE TO RT AND THIS RN TO CHANGE RR TO 18, AND OBTAIN ABG IN HOUR. ABG RESULTS CALLED TO DR. PÉREZ AND ORDERS RECIEVED TO GIVE 1 AMP BICARB, FI02 INCREASED TO 100% BY RT, ANY VENT CHANGES MADE WERE DONE BY RT PER DR. PÉREZ ORDERS.
[2020-12-03] VITALS (59 sets, daily range): BP systolic 80–138; BP diastolic 51–77
[2020-12-03 00:16] LABS: BE(vivo) -5.4 mmol/L (-2 to +3); HCO3 23.6 mmol/L (22.0-26.0); PO2 74.2 mmHg (80.0-100.0); sO2 90.2 % (92.0-98.0)
[2020-12-03 00:17] LABS: PCO2 67.5 mmHg (35.0-45.0); pH 7.162 (7.360-7.450)
[2020-12-03 05:02] LABS: HEMOGLOBIN 8.3 gm/dL (14.0-18.0); MCH 32.6 pg (26.0-34.0); MCHC 33.1 g/dL (28.0-37.0); MCV 98.3 fL (80.0-100.0); RBC 2.54 mil/uL (4.50-6.00); RDW 13.2 % (10.5-14.5); WBC 2.6 thou/uL (4.0-11.0)
[2020-12-03 05:17] LABS: CALCIUM 7.3 mg/dL (8.5-10.1); CREATININE 3.6 mg/dL (0.7-1.3); POTASSIUM 4.8 mmol/L (3.5-5.1)
[2020-12-03 05:25] LABS: BE(vivo) -4.7 mmol/L (-2 to +3); HCO3 24.1 mmol/L (22.0-26.0); PO2 75.1 mmHg (80.0-100.0); sO2 90.8 % (92.0-98.0)
[2020-12-03 05:26] LABS: PCO2 66.9 mmHg (35.0-45.0); pH 7.174 (7.360-7.450)
[2020-12-03 05:48] LABS: ALBUMIN 2.3 g/dL (3.4-5.0); DIRECT BILIRUBIN 0.2 mg/dL (<0.1-0.2); TOTAL BILIRUBIN 0.2 mg/dL (0.2-1.0); TOTAL PROTEIN 4.8 g/dL (6.4-8.2)
--- NOTE | 2020-12-03 06:26 | NUR ---
VISIBLY GASPING FOR BREATH ON VENT, RR APPROXIMATELY 4-6 BREATHS OVER RATE. ABLE TO TITRATE LEVO DOWN, TOLERATING WELL. URINE OUTPUT PICKING UP AROUND 0300, HR TRENDING DOWN, APPROXIMATELY 105-110 FOR LAST SEVERAL HOURS. QUESTIONABLE SAT READING, NOT MATCHING ABG, REMAINS ON 100% FI02.
--- NOTE | 2020-12-03 10:17 | NUR ---
ASSUMED CARE AT 0700, ASSESSMENT ADN VITAL SIGNS COMPLETED PER ICU PROTOCOL. DR. BESS AND DR. AHUMADA ROUNDED THIS AM, PLAN OF CARE DISCUSSED. RN WILL CONTINUE TO MONITOR.
--- NOTE | 2020-12-03 12:40 | 2DMMODE ---
[facility] [address] [employer] [place] [address] 2 D/M-MODE ECHOCARDIOGRAM Name: NARAYAN PAGE Room #: 236-P ADM IN M.R.#: [id number] Admission: 12/01/20 Attend Phys: Dyan Cohen MD Discharge: Date of : 45 Report #: [id number] THIS REPORT FOR: cc: Shauna Munson MD, Stany A. MD Lammoglia, Francisco J. MD ~ APPROVED REPORT Study performed: 12/03/2020 08:04:20 EXAM: Comprehensive 2D, Doppler, and color-flow Echocardiogram Patient Location: ICU Room #: 236 Status: on-call BSA: 1.97 HR: 107 bpm BP: 113/62 mmHg Rhythm: Pacemaker Other Information Study Quality: Adequate/patient on vent Indications Shock. Hx: Afib, PPM, COPD. 2D Dimensions RVDd: 43.62 mm IVSd: 11.32 (7-11mm) LVOT Diam: 21.49 (18-24mm) LVDd: 44.73 mm PWd: 10.68 (7-11mm) Ascending Ao: 31.82 (22-36mm) LVDs: 30.82 (25-40mm) Left Atrium: 42.34 (27-40mm) Aortic Root: 34.85 mm Volumes Left Atrial Volume (Systole) Single Plane 4CH: 56.44 mL Single Plane 2CH: 77.70 mL LA ESV Index: 37.00 mL/m2 Aortic Valve AoV Peak Leonardo.: 1.86 m/s AO Peak Gr.: 13.86 mmHg LVOT Max P.86 mmHg LVOT Max V: 1.31 m/s [facility] [address] [place] [address] 2 D/M-MODE ECHOCARDIOGRAM Name: NARAYAN PAGE Room #: 236-P ADM IN M.R.#: [id number] Admission: 12/01/20 Attend Phys: Dyan Cohen MD Discharge: Date of : 45 Report #: [id number] Vmax: 2.55 cm2 Mitral Valve MV Decel. Time: 137.64 ms MV E Max Leonardo.: 1.25 m/s Pulmonary Valve PV Peak Leonardo.: 1.54 m/s PV Peak Gr.: 9.49 mmHg Tricuspid Valve TR Peak Leonardo.: 3.46 m/s RAP Estimate: 10.00 mmHg TR Peak Gr.: 48.01 mmHg PA Pressure: 58.00 mmHg Left Ventricle The left ventricle is normal size. There is normal LV segmental wall motion. There is normal left ventricular wall thickness. Left ventricular systolic function is normal. LVEF is 55%. This study is not technically sufficient to allow evaluation of the LV diastolic function. Right Ventricle Right ventricle is mildly dilated. The right ventricular systolic function is normal. Pacemaker lead is present in the right ventricle. Atria Mild biatrial enlargement. Aortic Valve The Aortic valve is moderately sclerotic. Mild aortic regurgitation. There is no aortic valvular stenosis. Mitral Valve Mitral valve leaflets are mildly thickened. Mild mitral regurgitation. No evidence of mitral valve stenosis. Tricuspid Valve The tricuspid valve is normal in structure. Mild to moderate tricuspid regurgitation. Estimted PAP is 58mmHg. Pulmonic Valve Pulmonic valve is not well visualized. Great Vessels The aortic root is normal in size. The ascending aorta is normal in size. IVC is dilated and collapses 50% with [facility] [address] [place] [address] 2 D/M-MODE ECHOCARDIOGRAM Name: NARAYAN PAGE Room #: 236-P [facility] IN M.R.#: [id number] Admission: 12/01/20 Attend Phys: Dyan Cohen MD Discharge: Date of : 45 Report #: [id number] inspiration. Pericardium There is no pericardial effusion. <Conclusion> The left ventricle is normal size. Left ventricular systolic function is normal. LVEF is 55%. Right ventricle is mildly dilated. The right ventricular systolic function is normal. Pacemaker lead is present in the right ventricle. Mild biatrial enlargement. The Aortic valve is moderately sclerotic. Mild aortic regurgitation. Mitral valve leaflets are mildly thickened. Mild mitral regurgitation. The tricuspid valve is normal in structure. Mild to moderate tricuspid regurgitation. Estimted PAP is 58mmHg. Pulmonic valve is not well visualized. There is no pericardial effusion. <ELECTRONICALLY SIGNED> By: Derek Mcgee MD 12/03/20 1239 1239 1239 Derek Mcgee MD /INF
--- NOTE | 2020-12-03 15:12 | HC ---
[facility] [place] [address] CONSULTATION Name: NARAYAN PAGE Room #: 236-P ADM IN M.R.#: [id number] Admission: 12/01/20 Attend Phys: Dyan Cohen MD Discharge: Date of : 45 Report #: [id number] THIS REPORT FOR: cc: Shauna Munson MD, Stany A. MD Geha,Matt Montana MD ~ DATE OF SERVICE: 12/02/2020 INFECTIOUS DISEASE CONSULTATION REASON FOR CONSULTATION: I was asked to evaluate concerning septic shock. HISTORY OF PRESENT ILLNESS: The patient is a 75-year-old with underlying coronary artery disease, chronic kidney disease, who suffered acute perforated appendicitis on 09/18/2020, he underwent a laparoscopic appendectomy. There was evidence of purulent drainage. No cultures obtained. Treated with intraoperative drain and Zosyn for 3 days, then discharged on 1 week of Levaquin and metronidazole. While at home, he developed increased abdominal pain associated with vomiting and weakness. He presented to the Emergency Room where he had evidence of coffee-ground emesis. CT scan showed small-bowel obstruction with multiple dilated loops in the right lower quadrant. No definite abscess seen. Drain remained in place with small amount of serosanguineous purulent drainage. No report of dysuria or diarrhea. The patient underwent an EGD for evaluation of coffee-ground emesis. Found to have moderate amount of food in his stomach and had aspirated. Now in the Intensive Care Unit on 3-drug vasopressors to control his blood pressure. On 70% FiO2. Moderate amount of dark colored endotracheal secretions aspirated. NG tube in place. Indwelling Grace catheter. Central venous access to the right IJ catheter. He was encephalopathic. He was sedated. REVIEW OF SYSTEMS: A 14-point review was negative other than what has been described above. ALLERGIES: ADHESIVE TAPE, BENADRYL. MEDICATIONS: As noted on his NOV, having completed his course of Levaquin and metronidazole last week, he was placed on vancomycin and Zosyn. Other medications as noted on his NOV. PAST MEDICAL AND SURGICAL HISTORY: Emphysema, oxygen dependent, 2 liters; chronic fibrosis; complete heart block; paroxysmal atrial fibrillation; cardiomyopathy; permanent pacemaker and defibrillator; restless legs syndrome; depression; panic attacks; gastroesophageal reflux; insomnia; BPH; hemorrhoids; hemorrhoidectomy; herniorrhaphy; right hip total arthroplasty. [facility] [address] [place] [address] CONSULTATION Name: NARAYAN PAGE Room #: 236-P [facility] IN M.R.#: [id number] Admission: 12/01/20 Attend Phys: Dyan Cohen MD Discharge: Date of : 45 Report #: [id number] FAMILY HISTORY: Diabetes. SOCIAL HISTORY: Smoker of cigarettes. No significant alcohol intake. Lives with his . PHYSICAL EXAMINATION: VITAL SIGNS: Afebrile. He was on 3 pressors. GENERAL: He was edematous. SKIN: Without rash or decubitus. No peripheral cyanosis. Right IJ catheter in place with no drainage. Indwelling Grace catheter in place. No palpable adenopathy. HEENT: Eyes: Pupils were 4 mm and reacted to light, equal. Mouth orally intubated. No lesions. NECK: Supple. LUNGS: Coarse breath sounds bilaterally, most predominant on the right. HEART: Tachycardic and regular. ABDOMEN: Distended with midline abdominal drain in place, placed fluid in the bulb. No other appreciable mass or hepatosplenomegaly. GENITOURINARY: External genitalia without mass, lesion. RECTAL: Not performed. EXTREMITIES: Without clubbing or cyanosis. He was sedated. LABORATORY STUDIES: Reviewed. MICROBIOLOGY: Reviewed. CT scan of the abdomen and pelvis reviewed. Chest x-ray reviewed. IMPRESSION: A 75-year-old presents now with septic shock, multiorgan system failure following acute appendicitis with perforation 18 days ago, having undergone laparoscopic appendectomy. He presented with small-bowel obstruction and now aspiration pneumonia, encephalopathy, acute on chronic renal failure, lactic acidosis. He has underlying hypertension, complete heart block, cardiomyopathy and oxygen dependent chronic obstructive pulmonary disease. RECOMMENDATIONS: Broad antibiotic coverage to continue with vancomycin and Zosyn. We will need to monitor vancomycin levels as the patient has acute kidney injury. Sepsis treatment. Now in the ICU with multisystem approach with Pulmonology, Nephrology, General Surgery and GI service in attendance. Blanca culture. [place] for survival. Given his other comorbidities, he is poor. Had discussed with nursing staff and Respiratory staff as well as Pulmonary Critical [address] [address] CONSULTATION Name: NARAYAN PAGE Room #: 236-P ADM IN M.R.#: [id number] Admission: 12/01/20 Attend Phys: Dyan Cohen MD Discharge: Date of : 45 Report #: [id number] Care service. We will maintain full support with serial laboratory studies and make adjustments accordingly. <ELECTRONICALLY SIGNED> By: Matt Schmitz MD 12/03/20 1512 1757 2202 Matt Schmitz MD /nt
[2020-12-03 16:55] LABS: BE(vivo) -1.4 mmol/L (-2 to +3); PO2 117.2 mmHg (80.0-100.0); sO2 97.6 % (92.0-98.0)
[2020-12-03 16:56] LABS: pH 7.262 (7.360-7.450)
[2020-12-04] VITALS (49 sets, daily range): BP systolic 81–132; BP diastolic 43–76
[2020-12-04 04:17] LABS: CALCIUM 8.3 mg/dL (8.5-10.1); POTASSIUM 4.9 mmol/L (3.5-5.1)
[2020-12-04 04:24] LABS: CREATININE 2.4 mg/dL (0.7-1.3)
--- NOTE | 2020-12-04 04:54 | NUR ---
pt continues to breathe with accessory muscles on vent, rate on vent 24, rr 26-29, does not withdraw to pain, slight grimace with oral cares. able to titrate levo slowly, on minimal sedation. adequate uop, small amt secretions. flotrac machine requiring troubleshooting at times, zeroed x3 in shift.
[2020-12-04 05:15] LABS: BE(vivo) -1.9 mmol/L (-2 to +3); HCO3 25.6 mmol/L (22.0-26.0); PCO2 60.1 mmHg (35.0-45.0); PO2 228.8 mmHg (80.0-100.0); sO2 99.3 % (92.0-98.0)
[2020-12-04 05:16] LABS: pH 7.248 (7.360-7.450)
[2020-12-04 05:35] LABS: HEMATOCRIT 23.2 % (42.0-52.0); HEMOGLOBIN 7.6 gm/dL (14.0-18.0); MCH 32.6 pg (26.0-34.0); MCHC 32.8 g/dL (28.0-37.0); MCV 99.2 fL (80.0-100.0); RBC 2.34 mil/uL (4.50-6.00); RDW 13.3 % (10.5-14.5)
--- NOTE | 2020-12-04 10:21 | P ---
[facility] [place] [address] PROCEDURE REPORT Name: NARAYAN PAGE Room #: 236-P ADM IN M.R.#: [id number] Admission: 12/01/20 Attend Phys: Dyan Cohen MD Discharge: Date of : 45 Report #: [id number] THIS REPORT FOR: cc: Shauna Munson MD, Stany A. MD McElhinney, Christian C. MD ~ DATE OF SERVICE: 12/02/2020 PROCEDURE PERFORMED: Upper endoscopy. HISTORY OF PRESENT ILLNESS: The patient is a 75-year-old male with a history of perforated appendicitis on 11/14/2020 who underwent laparoscopic appendectomy with Dr. Kc as well as drain placement. The patient was feeling generalized weakness recently at home, was evaluated by Dr. Kc, underwent a CT scan of the abdomen and pelvis, which showed interval development of small-bowel obstruction with multiple dilated loops of small bowel involving the proximal small bowel and distal small bowel decompressed. Transition point appears to be in the right lower quadrant. Pelvic surgical drain is in place. I was consulted yesterday as the patient had a nasogastric tube in place with dark gastric contents noted. The patient has multiple medical problems including COPD, hypertension, atrial fibrillation, cardiomyopathy. He has a defibrillator placed. He also has a history of gastroesophageal reflux disease and takes Prilosec daily and Tums on a p.r.n. basis. The patient has been on Xarelto for his atrial fibrillation. His admit hemoglobin was 12.2 yesterday, repeated this and it dropped to 11.0 and then 9.9. During consultation, I explained to the patient and his , I would recommend proceeding with an upper endoscopy as he has had a drop in his hemoglobin as well as dark material suggesting an upper GI bleed. The patient remained on nasogastric suction to low intermittent suction since yesterday. There was minimal amounts of material in the canister today prior to the procedure. His hemoglobin today dropped to 8.4. His Xarelto has been held. Plan is for upper endoscopy. DESCRIPTION OF PROCEDURE: The risks and benefits of the procedure were explained to the patient, those risks including but not limited to bleeding, perforation and the risk of sedation. He understood these risks and gave informed consent. Sedation was given using propofol per anesthesia. Next, after sedation, I proceeded with removing the nasogastric tube. At this point, using a standard Olympus upper endoscope, the scope was placed in the patient's mouth and advanced under direct vision through the esophagus into the stomach, at which point a mixture of liquid as well as food material was noted within the gastric fundus. There was a fair amount of food in this area, this was all dark material. There was a small amount of liquid in the esophagus as I was entering the stomach. This was aspirated away. I started advancing the scope into the stomach, the gastric mucosa was fairly normal. In the body and antrum, there was some old food noted near the pylorus. I was advancing the scope into the [address] [address] PROCEDURE REPORT Name: NARAYAN PAGE Room #: 236-P [facility] IN M.R.#: [id number] Admission: 12/01/20 Attend Phys: Dyan Cohen MD Discharge: Date of : 45 Report #: [id number] pylorus, I could see residual liquid and some food within the duodenum. At this point, the patient began retching and vomited large amount of liquid mixed with some of the solid material. I tried to aspirate away what I could in the esophagus. At this point, I removed the endoscope immediately. The patient was suctioned at this time with a Yankauer orally. He had a fair amount of material within his mouth. We felt he may be aspirating at this point; therefore, the procedure was terminated and the patient was emergently intubated. There was a large amount of food and liquid in his oropharynx that was suctioned away. The patient was intubated; however, there was liquid within the ET tube and this was suctioned away. We then spent another 45 minutes to an hour giving the patient pressors as he had a drop in his blood pressure throughout this time. He never did code during this time. He was tachycardic. He was given several different medications, which he can look at anesthesia's chart to support his blood pressure, oxygenation improved. At this point, he was then transferred to the ICU for further care. IMPRESSION: 1. Mixture of solid and liquid food within the stomach as described above. I was unable to significantly evaluate his esophagus or stomach as well as the duodenum due to aspiration very soon after the scope was introduced into the patient's stomach. No obvious active bleeding was noted. There was no evidence of bright red blood, but old blood and material was noted. 2. Likely aspiration pneumonia, requiring emergent intubation as described above. 3. Hypotension. RECOMMENDATIONS: Obviously supportive care. I discussed the findings and the situation with his , which she understands. We will consult Pulmonary as well as Cardiology and Renal, as the patient does have renal insufficiency. He is already on IV Zosyn and vancomycin at this time. We will continue to monitor hemoglobin and continue PPI therapy. Thank you for allowing me to participate in his care. <ELECTRONICALLY SIGNED> By: Alfredo Triana MD 12/04/20 1021 1618 2126 Alfredo Triana MD /bacilio
--- NOTE | 2020-12-04 20:04 | NUR ---
ASSUMED CARE AT 0700, ASSESSMENT AND VITAL SIGNS COMPLETED PER ICU PROTOCOL. DR. PÉREZ ROUNDED THIS AM, PLAN OF CARE DISCUSSED. PT WEANED OFF PROPOFOL AND PLACED ON VERSED GTT. LEVOPHED TITRATED OFF THIS SHIFT. EKG ORDERED, SHOWED A FLUTTER WITH RVR, CARDIOLOGY CONSULTED, RN SPOKE WITH DR. PADILLA, ORDERED PHENYLEPHRINE GTT STARTED TO REDUCE HR.
[2020-12-05] VITALS (13 sets, daily range): BP systolic 107–146; BP diastolic 66–93
--- NOTE | 2020-12-05 02:45 | NUR ---
ASSUMED CARE OF PATIENT AT 1900. PATIENT ON PHENYLEPHERINE DRIP PER DR PADILLA. CALLED DR PADILLA TO CLARIFY PARAMETERS FOR PHENYLEPHERINE DRIP. PER DR COVINGTON, TITRATE FOR HR <120. PER DR. BLANODN, ANTICOAGULATION THERAPY NEEDS TO BE ADDRESSED IN DAY ROUNDS FOR MORE OPTIAL TREATMENT OF HEART RATE/RYTHM. PT REMIANS IN AFIB/FLUTTER WITH RATE OF 100-125. TITRATING PHENYLEPHERING PER ORDER. PATIENT REMAINS INTUBATED AND SEDATED. PATIENT HAS OCCASIONAL COUGH/GAG. RESTRAINTS REMOVED. PATIENT CONTINUES TO BREATHE ABOVE THE SET VENT RATE WITH A RR OF 24-29. VERSED AND FENTANYL DRIPS INCREASED TO EASE BREATHING, NO IMPROVEMENT NOTED. ADEQUATE URINE OUTPUT. NO BM. SEE MAR/ICU CHARTING FOR ADDITONAL DETAILS. CONTINUE NURSING PLAN OF CARE.
--- NOTE | 2020-12-05 07:20 | EKG ---
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 : 1945 Requested By: Dyan Cohen Order Number: [id number] : Rober Mehta Measurements Intervals [place] Rate: 116 P: 0 CA: 103 QRS: 1 QRSD: 173 T: 145 QT: 400 QTc: 556 Interpretive Statements Sinus tachycardia Atrial premature complexes Left bundle branch block Compared to ECG 12/01/2020 05:35:24 Atrial premature complex(es) now present Left bundle-branch block now present Ventricular-paced complex(es) or rhythm no longer present Atrial-sensed ventricular-paced complex(es) or rhythm no longer present Electronically Signed On 12-05-2020 7:20:25 CDT by Rober Mehta [email or web address] <ELECTRONICALLY SIGNED> By: Rober Mehta MD, FACC 12/05/20 0720 1659 1659 Rober Mehta MD, FAC /EPI
--- NOTE | 2020-12-05 07:21 | EKG ---
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 : 1945 Requested By: Mason Ruth Order Number: [id number] MD: Rober Mehta Measurements Intervals [place] Rate: 114 P: [place]: QRS: 7 QRSD: 170 T: 139 QT: 430 QTc: 593 Interpretive Statements Sinus taachycardia Left bundle branch block Compared to ECG 12/01/2020 05:35:24 Left bundle-branch block now present Ventricular-paced complex(es) or rhythm no longer present Atrial-sensed ventricular-paced complex(es) or rhythm no longer present Electronically Signed On 12-05-2020 7:20:53 CDT by Rober Mehta [email or web address] <ELECTRONICALLY SIGNED> By: Rober Mehta MD, FACC 12/05/20 0720 170 170 Rober Mehta MD, [facility] /EPI
--- NOTE | 2020-12-05 07:26 | EKG ---
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 : 1945 Requested By: Dyan Cohen Order Number: [id number] MD: Rober Mehta Measurements Intervals [place] Rate: 127 P: [place]: QRS: 15 QRSD: 150 T: 178 QT: 336 QTc: 489 Interpretive Statements Suspect sinus tachycardia IVCD, consider atypical LBBB Baseline wander in lead(s) V1,V2 Compared to ECG 12/02/2020 17:00:31 2:1 AV block now present Ventricular premature complex(es) now present Electronically Signed On 12-05-2020 7:26:11 CDT by Rober Mehta [email or web address] <ELECTRONICALLY SIGNED> By: Rober Mehta MD, FAC 12/05/20 0726 1714 1714 Rober Mehta MD, [facility] /EPI
--- NOTE | 2020-12-05 07:35 | EKG ---
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 : 1945 Requested By: Derek Mcgee Order Number: [id number] MD: Kaushik Meza Measurements Intervals [place] Rate: 125 P: [place]: QRS: -2 QRSD: 153 T: 148 QT: 352 QTc: 508 Interpretive Statements Atrial fibrillation with rapid ventricular response Multiple ventricular premature complexes LBBB Compared to ECG 12/04/2020 17:14:13 No significant changes Electronically Signed On 12-05-2020 7:35:11 CDT by Kaushik Meza [email or web address] <ELECTRONICALLY SIGNED> By: Kaushik Meza MD, [facility] 12/05/20 0735 0349 034 Kaushik Meza MD, FACC /EPI
--- NOTE | 2020-12-05 10:07 | NUR ---
chart review. lenny is requiring vent, uzma at bedside visiting with sharri. noted he was here few weeks ago had procedure and dc home with [facility]. live in apartment about 15 steps. has home o2 from [employer] and has can. before hospital he was independent. will cont following as needed for dc needs.
[2020-12-05 13:00] LABS: CALCIUM 9.1 mg/dL (8.5-10.1); CREATININE 2.1 mg/dL (0.7-1.3); POTASSIUM 4.5 mmol/L (3.5-5.1)
--- NOTE | 2020-12-05 18:37 | NUR ---
PT NOT PROGRESSING TOWARDS DISCHARGE AT THIS TIME R/T SLOW GI MOTILITY, VENTILATION REQUIREMENT, SEDATION, AND UNCONTROLLED HR. DESIRED OUTCOME FOR PT TODAY WAS TO HAVE SLOWER HR <120 WITH THE USE OF PHENYLEPHRINE, PT WAS ABLE TO OCCASIONALLY GO DOWN BELOW 120 FOR NO MORE THAN FEW SECONDS BUT HAS BEEN SUSTAINING HR AROUND 130s, IT WAS CONSULTED WITH BARREL LEVELER BY RN TO CONSIDER STARTING PRECEDEX TO SLOW THE HR DOWN, BARREL LEVELER WAS AGREEABLE, AND IT WAS COMMUNICATED TO PULMONLOGIST WHO ALSO WAS AGREEABLE THEN IT WAS STARTED AT 1800, WILL PASS ON TO NOC SHIFT TO TITRATE NEEDED. PT WAS ALSO SENT DOWN FOR GI XRAY TO FOR GASTRIC MOTILITY DIAGNOSTICS. PER XRAY RAG BOILER BY THEIR RADIOLOGIST SINCE PT'S MOTILITY IS SO SLOW, FURTHER EXAMINATION BY XRAY EVERY HOURLY IS INAPPROPERIATE AND WILL HAVE TO BE CONTINUED TOMORROW MORNING. SO AT THIS TIME IT IS UNDETERMINABLE WHETHER PT IS APPROPERIATE CANDIDATE FOR ENTERAL FEEDING AT THIS TIME. URINE OUTPUT WAS 800 TODAY, PT'S SKIN IS CONTROLLED BY TURNS AND NO OPEN WOUNDS AT THIS TIME, CLRT IS ON. RN SIGNING OFF
[2020-12-05 21:43] LABS: HEMATOCRIT 29.7 % (42.0-52.0); HEMOGLOBIN 9.5 gm/dL (14.0-18.0); MCH 31.7 pg (26.0-34.0); MCHC 32.1 g/dL (28.0-37.0); PLATELET COUNT 149 thou/uL (150-400); RDW 15.2 % (10.5-14.5); WBC 17.2 thou/uL (4.0-11.0)
[2020-12-05 22:19] LABS: ABSOLUTE NEUTROPHILS 15.5 thou/uL (1.4-8.2); METAMYELOCYTES 2 %; MYELOCYTES 1 %
[2020-12-05 22:20] LABS: LARGE PLATELETS OCCASIONAL
[2020-12-06] VITALS (56 sets, daily range): BP systolic 85–156; BP diastolic 33–96
[2020-12-06 04:53] LABS: CALCIUM 9.1 mg/dL (8.5-10.1); CREATININE 2.4 mg/dL (0.7-1.3); POTASSIUM 5.2 mmol/L (3.5-5.1)
[2020-12-06 05:20] LABS: BE(vivo) -8.8 mmol/L (-2 to +3); PO2 66.8 mmHg (80.0-100.0); sO2 85.5 % (92.0-98.0)
[2020-12-06 05:24] LABS: HEMATOCRIT 30.5 % (42.0-52.0); HEMOGLOBIN 9.5 gm/dL (14.0-18.0); MCH 31.2 pg (26.0-34.0); MCHC 31.1 g/dL (28.0-37.0); MCV 100.2 fL (80.0-100.0); RBC 3.04 mil/uL (4.50-6.00); RDW 15.2 % (10.5-14.5); WBC 14.8 thou/uL (4.0-11.0)
[2020-12-06 05:30] LABS: PCO2 66.6 mmHg (35.0-45.0); pH 7.116 (7.360-7.450)
--- NOTE | 2020-12-06 07:31 | NUR ---
ASSUMED CARE AT 1900. TITRATED PRECEDEX DRIP UP FOR HR CONTROL, BUT CONTINUED TO BE 120'S OVERNIGHT. COARSE LUNG SOUNDS W/ DIMINISHED ON RIGHT; VERY HYPOACTIVE BOWEL SOUNDS, KEPT OG CLAMPED OVERNIGHT FOR GASTRIC MOTILITY STUDY. SPOKE W/DR. PÉREZ THIS AM, ORDERED AMP OF BICARB AND START PROPOFOL DRIP/TITRATE OFF PRECEDEX DRIP TO IMPROVE HR. SHIFT REPORT GIVEN O700, PT NOT PROGRESSING TOWARDS GOALS.
--- NOTE | 2020-12-06 10:25 | NUR ---
cm visited with at bedside, cm cont to wear, face mask and shield during visit. active listen. he remains on vent, gi on case. fio2 100%. will cont following as needed.
[2020-12-06 14:31] LABS: MAGNESIUM 2.6 mg/dL (1.8-2.4); PHOSPHORUS 5.3 mg/dL (2.5-4.9)
[2020-12-06 15:53] LABS: BE(vivo) -7.4 mmol/L (-2 to +3); HCO3 23.4 mmol/L (22.0-26.0); PO2 137.7 mmHg (80.0-100.0); sO2 97.5 % (92.0-98.0)
[2020-12-06 15:54] LABS: PCO2 80.9 mmHg (35.0-45.0)
[2020-12-06 22:21] LABS: BE(vivo) -6.7 mmol/L (-2 to +3); HCO3 21.9 mmol/L (22.0-26.0); PCO2 61.1 mmHg (35.0-45.0); PO2 110.7 mmHg (80.0-100.0); sO2 96.7 % (92.0-98.0)
[2020-12-06 22:22] LABS: pH 7.173 (7.360-7.450)
--- NOTE | 2020-12-06 22:37 | NUR ---
ASSUMED CARE AT 1900. LEVO GTT STARTED 193 FOR LOW BP. REPOSITIONED OG TUBE, 350 ML BLACK/GREEN LIQUID OUT IN UNDER 10 MINUTES; REPOSITIONED AGAIN AN HOUR LATER, ANOTHER 650 ML OF SAME LIQUID OUT. TITRATING GTTs TO MAINTAIN MAP IN 60'S AND CONTROL HR. STARTED ON TPN. CONTINUES W/BAREHUGGER FOR HYPOTHERMIA. 2234- W/DR. PÉREZ ABOUT REPEAT ABGs AND OG OUTPUT. ORDERED AMP BICARB AND REPEAT ABGs IN AM. WILL CONTINUE TO MONITOR.
[2020-12-07] VITALS (85 sets, daily range): BP systolic 77–148; BP diastolic 38–81
[2020-12-07 04:58] LABS: BE(vivo) -4.5 mmol/L (-2 to +3); HCO3 26.4 mmol/L (22.0-26.0); sO2 88.9 % (92.0-98.0)
[2020-12-07 04:59] LABS: PCO2 88.9 mmHg (35.0-45.0)
[2020-12-07 05:44] LABS: HEMATOCRIT 27.9 % (42.0-52.0); HEMOGLOBIN 8.8 gm/dL (14.0-18.0); MCHC 31.4 g/dL (28.0-37.0)
[2020-12-07 05:49] LABS: MCH 31.6 pg (26.0-34.0); MCV 100.4 fL (80.0-100.0); RBC 2.78 mil/uL (4.50-6.00); RDW 15.1 % (10.5-14.5); WBC 12.7 thou/uL (4.0-11.0)
[2020-12-07 06:16] LABS: ALBUMIN 1.6 g/dL (3.4-5.0); CALCIUM 8.7 mg/dL (8.5-10.1); MAGNESIUM 2.6 mg/dL (1.8-2.4); PHOSPHORUS 5.6 mg/dL (2.5-4.9); POTASSIUM 4.8 mmol/L (3.5-5.1); TOTAL BILIRUBIN 0.5 mg/dL (0.2-1.0); TOTAL PROTEIN 5.2 g/dL (6.4-8.2)
[2020-12-07 06:32] LABS: CREATININE 3.9 mg/dL (0.7-1.3)
[2020-12-07 07:52] LABS: BE(vivo) -2.3 mmol/L (-2 to +3); HCO3 32.9 mmol/L (22.0-26.0); PO2 139.6 mmHg (80.0-100.0)
[2020-12-07 07:54] LABS: pH 6.904 (7.360-7.450)
[2020-12-07 09:44] LABS: BE(vivo) -2.6 mmol/L (-2 to +3); HCO3 29.2 mmol/L (22.0-26.0); PO2 77.4 mmHg (80.0-100.0); sO2 88.2 % (92.0-98.0)
--- NOTE | 2020-12-07 10:55 | NUR ---
noted tearful outside of his room, she was on the phone. tried to offer support but primary md office here for visit as well. sharri notified for support as well. he remains on vent support. critical and will cont following as needed.
[2020-12-07 12:37] LABS: BE(vivo) -4.3 mmol/L (-2 to +3); HCO3 26.7 mmol/L (22.0-26.0); PO2 79.1 mmHg (80.0-100.0); sO2 89.8 % (92.0-98.0)
[2020-12-07 12:38] LABS: PCO2 88.9 mmHg (35.0-45.0); pH 7.095 (7.360-7.450)
--- NOTE | 2020-12-07 14:10 | NUR ---
2ND CL PLACED IN LT IJ FOR ACCESS.
--- NOTE | 2020-12-07 17:00 | NUR ---
PRESENT AT BEDSIDE MOST OF DAY. UPDATED ON ALL CARES, PROVIDED SUPPORT, ANSWERED QUESTIONS.
[2020-12-07 17:41] LABS: BE(vivo) -5.5 mmol/L (-2 to +3); HCO3 24.6 mmol/L (22.0-26.0); PO2 59.1 mmHg (80.0-100.0); sO2 79.3 % (92.0-98.0)
[2020-12-07 17:43] LABS: PCO2 80.1 mmHg (35.0-45.0); pH 7.105 (7.360-7.450)
[2020-12-07 22:00] LABS: HCO3 22.7 mmol/L (22.0-26.0); PCO2 63.1 mmHg (35.0-45.0); PO2 59.9 mmHg (80.0-100.0); sO2 83.4 % (92.0-98.0)
[2020-12-07 22:03] LABS: pH 7.174 (7.360-7.450)
[2020-12-08] VITALS (65 sets, daily range): BP systolic 96–138; BP diastolic 35–71
[2020-12-08 04:34] LABS: BE(vivo) -7.5 mmol/L (-2 to +3); HCO3 23.1 mmol/L (22.0-26.0); PO2 77.1 mmHg (80.0-100.0); sO2 88.4 % (92.0-98.0)
[2020-12-08 04:35] LABS: PCO2 82.3 mmHg (35.0-45.0); pH 7.067 (7.360-7.450)
--- NOTE | 2020-12-08 05:41 | NUR ---
ASSUMED CARE AT 1900. SPOKE W/DR. PÉREZ AFTER 2199 ABG'S, NO NEW ORDERS. SPOKE W/DR. SCHROEDER AT BEDSIDE; HE CHANGED ABX, ORDERED URINE SAMPLE, CURRENTLY UNABLE TO OBTAIN PT HAS NOT HAD ANY URINE OUT SINCE 2199. PT'S ABD MARKEDLY FIRMER AND MORE DISTENDED COMPARED TO PREV ENERGY AND SUSTAINABILITY MANAGER; ALSO HAS LOWER ABD/PELVIC AND SCROTAL EDEMA THAT WASN'T THERE PREV SHIFT. [address] PÉREZ, NO NEW ORDERS THIS AM. 0545-SPOKE TO ISREAL BRADFORD, OBTAINED ORDER FOR LOW DOSE SLIDING SCALE INSULIN. NO OTHER CONCERNS, NOT PROGRESSING TOWARDS GOALS.
[2020-12-08 05:53] LABS: HEMATOCRIT 26.5 % (42.0-52.0); HEMOGLOBIN 8.2 gm/dL (14.0-18.0); MCH 31.5 pg (26.0-34.0); MCHC 31.1 g/dL (28.0-37.0); MCV 101.2 fL (80.0-100.0); RBC 2.61 mil/uL (4.50-6.00); RDW 15.1 % (10.5-14.5); WBC 19.6 thou/uL (4.0-11.0)
[2020-12-08 06:12] LABS: CALCIUM 8.1 mg/dL (8.5-10.1); CREATININE 4.7 mg/dL (0.7-1.3)
[2020-12-08 07:52] LABS: MAGNESIUM 2.7 mg/dL (1.8-2.4)
--- NOTE | 2020-12-08 08:22 | NUR ---
ASSUMED CARE OF PT AT 0700 DR. ORTIZ AT BEDSIDE AT 0821, HE STATED HE WANTS TO SPEAK WITH THE TODAY WHEN SHE COMES IN
--- NOTE | 2020-12-08 09:21 | NUR ---
LEFT BPCI WITH TO LOOK AT AND READ, PUT NOT RESPONSIVE.
--- NOTE | 2020-12-08 10:17 | NUR ---
chart review. cm checked in with at bedside, she cont to wear mask at bedside. cm cont to wear face mask and shield during visit. cont to be tearful, she did not want to talk much today. she requested blanket, bedside nurse got her blanket. . MD will cont to talk with and daughter coming in town per bedside nurse. cm active listen and support. cm passed on to bedside nurse to talk with unite nurse plant quality manager for icu to see if daughter can visit?
[2020-12-08 14:35] LABS: BE(vivo) -10.8 mmol/L (-2 to +3); HCO3 22.4 mmol/L (22.0-26.0); PO2 67.5 mmHg (80.0-100.0); sO2 76.7 % (92.0-98.0)
[2020-12-08 14:36] LABS: PCO2 110.4 mmHg (35.0-45.0); pH 6.925 (7.360-7.450)
[2020-12-08 16:35] LABS: BE(vivo) -10.4 mmol/L (-2 to +3); HCO3 20.7 mmol/L (22.0-26.0); PCO2 81.3 mmHg (35.0-45.0); PO2 62.2 mmHg (80.0-100.0); pH 7.023 (7.360-7.450)
--- NOTE | 2020-12-08 20:36 | NUR ---
1800-STEP DTR KAY BECK ([phone]) CALLED,ASKING FOR SPECIAL ALLOWANCE FOR SOMEONE TO BE W HER MOM TOMORROW FOR FAMILY MTG. STEP DTR WILL BE DRIVING FROM [place] TOMORROW & ARRIVE SOMETIME IN THE [facility]. INFORMED THAT THIS REQUEST WILL BE RELAYED TO GEOMAGNETIST IN THE MORNING. NOC CHARGE UPDATED.--VW
[2020-12-09] VITALS (60 sets, daily range): BP systolic 48–160; BP diastolic 22–60
[2020-12-09 04:29] LABS: CALCIUM 8.7 mg/dL (8.5-10.1); CREATININE 5.4 mg/dL (0.7-1.3); POTASSIUM 5.8 mmol/L (3.5-5.1)
[2020-12-09 04:33] LABS: HEMATOCRIT 26.2 % (42.0-52.0); HEMOGLOBIN 8.1 gm/dL (14.0-18.0); MCH 31.2 pg (26.0-34.0); MCHC 30.9 g/dL (28.0-37.0); RBC 2.6 mil/uL (4.50-6.00); RDW 14.6 % (10.5-14.5); WBC 20.5 thou/uL (4.0-11.0)
--- NOTE | 2020-12-09 05:10 | NUR ---
NO RESPONSE TO PAIN, NO GAG/COUGH, NOT OVERBREATHING THE VENT. ABLE TO WEAN PRESSORS DOWN. HR VARIABLE, AV PACED, DESATS WITH TURNS. NOT PROGRESSING TOWARD GOALS
[2020-12-09 09:39] LABS: ALBUMIN 1.5 g/dL (3.4-5.0); DIRECT BILIRUBIN 0.4 mg/dL (<0.1-0.2); TOTAL BILIRUBIN 0.7 mg/dL (0.2-1.0)
--- NOTE | 2020-12-09 10:44 | NUR ---
1000- Dr. Nascimento in room with patients updating her on patients status. O2 saturation is in the 80% range. Dr. Rosario talked with her in regards to palliative extubation. She expressed she wants him comfortable and to not suffer. Plan is for patients daughter and son to come up to the hospital to be here for extubation to comfort.
--- NOTE | 2020-12-09 11:47 | NUR ---
passed on in rounds, comfort care, at bedside. will cont following as needed.
--- NOTE | 2020-12-09 16:48 | NUR ---
1625- family around bedside, patient extubated to palliative care. 1635- patient , family took all belongings.
== END 2020-12-09 16:35 | DRG 870 ==
LOC: ER 05:10 → EROBS 07:16 → 2N 07:16 → ICU 07:16 → 2N 12:21 → ICU 12-02 14:07
PROVIDERS: Emergency Medicine; Hospitalist; Internal Medicine Pulmonary Disease; Nurse Practitioner; Specialist; Student in an Organized Health Care Education/Training Program; ADMIT Internal Medicine; ATTEND Internal Medicine
PROC: 0D9670Z Drainage of Stomach with Drainage Device, Via Natural or Artificial Opening (ICD-10-PCS; principal; 2020-12-01)
PROC: 0B978ZZ Drainage of Left Main Bronchus, Via Natural or Artificial Opening Endoscopic (ICD-10-PCS; 2020-12-02)
PROC: 5A1955Z Respiratory Ventilation, Greater than 96 Consecutive Hours (ICD-10-PCS; 2020-12-02)
PROC: 02HV33Z Insertion of Infusion Device into Superior Vena Cava, Percutaneous Approach (ICD-10-PCS; 2020-12-02)
PROC: 0BC78ZZ Extirpation of Matter from Left Main Bronchus, Via Natural or Artificial Opening Endoscopic (ICD-10-PCS; 2020-12-02)
PROC: 0BH17EZ Insertion of Endotracheal Airway into Trachea, Via Natural or Artificial Opening (ICD-10-PCS; 2020-12-02)
PROC: 0DJ08ZZ Inspection of Upper Intestinal Tract, Via Natural or Artificial Opening Endoscopic (ICD-10-PCS; 2020-12-02)
PROC: 0BJ08ZZ Inspection of Tracheobronchial Tree, Via Natural or Artificial Opening Endoscopic (ICD-10-PCS; 2020-12-03)
PROC: 30233N1 Transfusion of Nonautologous Red Blood Cells into Peripheral Vein, Percutaneous Approach (ICD-10-PCS; 2020-12-04)
PROC: 0BJ08ZZ Inspection of Tracheobronchial Tree, Via Natural or Artificial Opening Endoscopic (ICD-10-PCS; 2020-12-06)
DX: A41.9 Sepsis, unspecified organism (principal); R65.21 Severe sepsis with septic shock; J69.0 Pneumonitis due to inhalation of food and vomit; N17.0 Acute kidney failure with tubular necrosis; J96.21 Acute and chronic respiratory failure with hypoxia; J96.22 Acute and chronic respiratory failure with hypercapnia; K92.2 Gastrointestinal hemorrhage, unspecified; K56.609 Unspecified intestinal obstruction, unspecified as to partial versus complete obstruction; I42.9 Cardiomyopathy, unspecified; I48.21 Permanent atrial fibrillation; N18.4 Chronic kidney disease, stage 4 (severe); G93.40 Encephalopathy, unspecified; I48.92 Unspecified atrial flutter; E87.0 Hyperosmolality and hypernatremia; K56.7 Ileus, unspecified; Z20.822 Contact with and (suspected) exposure to COVID-19; F32.9 Major depressive disorder, single episode, unspecified; Z96.641 Presence of right artificial hip joint; K21.9 Gastro-esophageal reflux disease without esophagitis; G47.00 Insomnia, unspecified; N40.0 Benign prostatic hyperplasia without lower urinary tract symptoms; G89.29 Other chronic pain; M54.9 Dorsalgia, unspecified; I48.0 Paroxysmal atrial fibrillation; G25.81 Restless legs syndrome; J43.2 Centrilobular emphysema; D64.9 Anemia, unspecified; I45.9 Conduction disorder, unspecified; I95.9 Hypotension, unspecified; E83.39 Other disorders of phosphorus metabolism; E83.41 Hypermagnesemia; Z66 Do not resuscitate; Z51.5 Encounter for palliative care; Z95.0 Presence of cardiac pacemaker; Z90.49 Acquired absence of other specified parts of digestive tract; Z88.8 Allergy status to other drugs, medicaments and biological substances; Z83.3 Family history of diabetes mellitus; Z87.891 Personal history of nicotine dependence; Z79.01 Long term (current) use of anticoagulants
CPT/HCPCS: 10078; 10081; 10203; 62110; 62900; 65040; 85014; 85076